=== PATIENT | male | born 1930 | race Caucasian/White ===

== ENCOUNTER 2016-11-13 10:52 | Day surgery (SDC) | payer MEDICARE, OTHER ==
[~2016-11-13] VITALS: Ht 180.3 cm; Wt 109.0 kg
--- NOTE | ~2016-11-13 | EEP ---
Pacemaker Generator Change/Upgrade Report Demographics Patient Name SHIRAZ SMITH Gender Male Patient Number [id number] Race Visit Number [id number] Ethnicity Corporate ID Room Number Accession Number [id number] Height 182.88 cm Date of 1930 Weight 115 kg Age 86 year(s) BSA 2.36 m Referring Physician Tommy Kang MD BMI 34.38 kg/m Implanting Physician King Tony Olsen MD Date of Study 11/13/2016 Assisting Physician Performing Physician King Tony Olsen MD The procedure was explained in detail to the patient. Risks, complications and alternative treatments were reviewed. Written consent was obtained. Medications reviewed with patient prior to procedure. Conclusions Complications No complications. Procedure Procedure Type Pacemaker:Generator Exchange, PM Generator exchange w/2 leads Indications Generator SUE. Procedure Description The patient was brought to the electrophysiology laboratory in a fasting state. A baseline ECG was recorded. Surface ECG leads, intracardiac electrograms, blood pressure measurements, and pulse oximety signals were monitored. A grounding pad was placed on the back. A defibrillator was configured to deliver shocks via self-adhesive anterior posterior defibrillator pads. Conscious sedation was administered. The upper chest area was prepped and draped in a sterile fashion. 1 % Lidocaine with Epi was was infused underneath the old scar. An incision was made over the old scar and blunt dissection down to the area of the capsule surrounding the pacemaker was performed. The capsule was incised sharply and dissected free. The pulse generator was removed. The lead(s) were then disconnected. The lead(s) were tested. The lead was then connected to the new pulse generator. The pocket was then flushed with normal saline. Hemostasis was obtained. The pulse generator was then placed into the pacemaker pocket. The pacemaker generator captured normally. The incision was closed. It was closed using 3-0 Vicryl for the deep and intermediate layer and 4-0 Vicryl for the subcuticular layer. A sterile dressing was applied. The patient tolerated the procedure well and was returned to the nursing unit in stable condition. Devices and Leads Devices + + + + +------+-------+ + !Identification!Action !Location !Device !Serial!Implant!Comments ! ! ! ! !name !# !date ! ! + + + + +------+-------+ + !New implant !Implanted !Left !ESSENTIO ![id number]! ! ! ! ! !Prepectoral!MRI DR ! ! ! ! ! ! ! !L111 ! ! ! ! + + + + +------+-------+ + Device Programming Bradycardia Zone +-------+--------+--------+--------+ + +------+--------+ !Pacing !Mode !Lower !Upper !Paced AV !Sensed AV !PVARP !VRP (ms)! !Mode !Switch !Rate !Rate !Interval !Interval !(ms) ! ! ! ! !(ppm) !(ppm) !(ms) !(ms) ! ! ! +-------+--------+--------+--------+ + +------+--------+ !DDDR !On !60 !130 !210 !180 !320 !250 ! +-------+--------+--------+--------+ + +------+--------+ Medical History Allergies - Codiene:. - Other:(Doxycycline, Franck inhibitors, statins). Admission Data Admission Date: 11/13/2016 Admission Time: 10:52 Insurance Payors:Medicare. Hospital Status:Outpatient. Procedure Data Procedure Date:11/13/2016Start:13:08 Estimated blood loss:12 ml. Procedure Medications Order and Administration + + +---------+--------+ !Time !Medication !Dosage !Route ! + + +---------+--------+ !11/13/2016 13:06 !Versed !2 mg !I.V. ! + + +---------+--------+ !11/13/2016 13:06 !Fentanyl !25 mcg !I.V. ! + + +---------+--------+ !11/13/2016 13:06 !Sodium Chloride !20 ml !I.V. ! + + +---------+--------+ !11/13/2016 13:00 !Ancef !2 g !I.V. ! + + +---------+--------+ !11/13/2016 13:07 !Oxygen !2 l/min !NC ! + + +---------+--------+ !11/13/2016 13:15 !Versed !1 mg !I.V. ! + + +---------+--------+ !11/13/2016 13:15 !Fentanyl !25 mcg !I.V. ! + + +---------+--------+ Discharge Data Discharge Date: 11/13/2016 Signatures
== END 2016-11-13 14:50 | disposition home or self-care (01) ==
LOC: SSS 10:52
PROC: 0JH606Z Insertion of Pacemaker, Dual Chamber into Chest Subcutaneous Tissue and Fascia, Open Approach (ICD-10-PCS; principal; 2016-11-13)
PROC: 0JPT0PZ Removal of Cardiac Rhythm Related Device from Trunk Subcutaneous Tissue and Fascia, Open Approach (ICD-10-PCS; principal; 2016-11-13)
PROC: 02HK3JZ Insertion of Pacemaker Lead into Right Ventricle, Percutaneous Approach (ICD-10-PCS; principal; 2016-11-13)
PROC: 02PA3MZ Removal of Cardiac Lead from Heart, Percutaneous Approach (ICD-10-PCS; principal; 2016-11-13)
PROC: 02H63JZ Insertion of Pacemaker Lead into Right Atrium, Percutaneous Approach (ICD-10-PCS; principal; 2016-11-13)
DX: Z45.010 Encounter for checking and testing of cardiac pacemaker pulse generator [battery] (principal); Z88.6 Allergy status to analgesic agent; Z88.8 Allergy status to other drugs, medicaments and biological substances; Z79.899 Other long term (current) drug therapy; Z79.82 Long term (current) use of aspirin